=== PATIENT | female | born 1940 | race Asian ===

== ENCOUNTER 2019-01-13 05:40 | Inpatient (IN) | payer OTHER ==
[~2019-01-13] VITALS: Ht 152.4 cm; Wt 59.0 kg
--- NOTE | 2019-01-13 07:07 | NUR ---
REPORT RECEIVED FROM CRYSTAL ARELLANO. I'M RESUMING CARE OF PT AT THIS TIME.
[2019-01-13] MEDS ORDERED: HYDROCHLOROTHIA25 MG PO (07:12)
--- NOTE | 2019-01-13 07:12 | NUR ---
REPORT GIVEN TO SETH ARELLANO.PT IN NAD. OXYGEN DECREASED TO 10 LITERS VIA NRB. PT VOIDED ONCE. APPROX 200 CC OF CLEAR URINE. SAMPLE COLLECTED
[2019-01-13] MEDS ORDERED: METFORMIN HCL1000 MG PO (07:13)
[2019-01-13] MEDS ORDERED: NOR5 PO (07:13)
[2019-01-13] MEDS ORDERED: ACT15 PO (07:13)
[2019-01-13] MEDS ORDERED: ATORVASTATIN CA20 M1 PO (07:14)
[2019-01-13] MEDS ORDERED: JANUVIA100 M1 PO (07:14)
--- NOTE | 2019-01-13 07:22 | NUR ---
PT IN POSITION OF COMFORT NO RESP DISTRESS NOTED. NON-REBREATHER MASK REMOVED, PT PLACED ON NASAL CANNULA AT 2L, PT TOLERATING WELL. RESP EVEN AND UNLABORED. PER DAUGHTER WHO IS TRANSLATING PT FEELS "BETTER" SINCE BEING MEDICATED. NO FURTHER ORDERS AT THIS TIME. PT ON FULL CM WILL MONITOR.
[2019-01-13 07:25] LABS: ALKALINE PHOSPHATASE 49 U/L (46-116); ALT/SGPT 44 U/L (14-59); AST/SGOT 37 U/L (15-37); BILIRUBIN TOTAL 0.53 mg/dL (0.20-1.00); CALCIUM 8.5 mg/dL (8.5-10.1); CARBON DIOXIDE 21.7 mmol/L (21-32); CHLORIDE SERUM 91 mmol/L (98-107); CREATININE SERUM 0.7 mg/dL (0.6-1.0); GLUCOSE SERUM 234 mg/dL (74-106); SODIUM SERUM 125 mmol/L (136-145)
[2019-01-13 07:45] LABS: BASOPHIL % 0.4 % (0-2); RED CELL DISTRIBUTION WIDTH 15.4 % (11.5-14.5)
[2019-01-13 07:46] LABS: PLATELET COUNT 506 x10^3mcL (130-400); TOTAL PROTEIN, SERUM 8.3 g/dL (6.4-8.2)
--- NOTE | 2019-01-13 08:01 | NUR ---
PT WITH URGE TO VOID ASSISTED TO BED RINCON, THIS IS HER 2ND TIME VOIDING POST MEDICATION GIVEN.
--- NOTE | 2019-01-13 09:30 | NUR ---
DR CHRISTOPHER AT BEDSIDE SPEAKING WITH PT AND PTS DAUGHTER
--- NOTE | 2019-01-13 09:37 | NUR ---
REPORT GIVEN TO DAVE RN RESUMING CARE OF PT IN TELE FLOOR
--- NOTE | 2019-01-13 09:59 | NUR ---
RECEIVED PT FROM ER, ACCOMPANIED BY 2 RNs AND DAUGHTER DENA, IN NO ACUTE DISTRESS, VERBAL, ABLE TO MAKE NEEDS KNOWN, CALM AND COOPERATIVE, PERRLA, BRISK, DENTURE TO BILATERAL JAWS, NO REDNESS/DRAINGE, NO FACIAL DROOP/SLURRED SPEECH, REGULAR DIET, RESP EVEN, MILD CONGESTIVE BILTERALLY, 2L/MIN, NC, 98%, LUNGS CTA, NO SOB/COUGH NOTED, TELE# 25, ST, HR-121 AT THIS TIME, DENIED CP/PALPITATION, DENIED N/V/D, DENIED FISH/DIZZINESS, CHEST RISE SYMMETRICALLY, HUE FLAT AND NON-TENDER TO TOUCH, BS ACTIVE X 4, PALP PULSES, CAP REFILL <3S, SKIN C/D/W, IV PATENT AND INFUSING WELL, DRESSING CDI, SEE SKIN ASSESSMENT, CONTINENT, AMBULATORY W/ GENERALIZED WEAKNESS, EQUAL HAND MANNEQUIN MAKER, ALL NEEDS ADDRESSED AT THIS TIME, SAFETY PROTOCOL FOLLOWED, COMFORT MEASURE PROVIDED, CONTINUE TO MONITOR
[2019-01-13 10:20] VITALS: BP 144/84
--- NOTE | 2019-01-13 11:22 | NUR ---
PT RESTING IN BED, IN NO ACUTE DISTRESS, VOID X 1, IV INFUSING WELL, DRESING CDI, SAFETY PROTOCOL FOLLOWED, CONTINUE TO MONITOR
--- NOTE | 2019-01-13 11:37 | NUR ---
PER DAUGHTER DENA, PT HAD PNEUMOCOCCAL VACCINE IN 2011 AND 2016, NO NEED FOR PNEUMOCOCCAL VACCINE AT THIS TIME DURING HOSPITALIZATION, MANAGER EPIC GUNNAR CLINE MADE AWARE, CONTINUE TO MONITOR
--- NOTE | 2019-01-13 12:52 | NUR ---
DR CHRISTOPHER CALLED AND ORDERED VIJI HIDALGO D/T PT AFIB CONDITION AND PLATELET LEVEL, RT-IS, AND PTT LAB, PT AND FAMILY MADE AWARE, ALL NEEDS ADDRESSED AT THIS TIME, SAFETY PROTOCOL FOLLOWED, CONTINUE TO MONITOR
--- NOTE | 2019-01-13 13:21 | NUR ---
I.S. PROVIDED, EDUCATED PT R/T TO USE OF I.S. W/ DEMONSTRATION, DEMONSTRATED UNDERSTANDING, PT MADE AWARE OF US ORDER, VERBALLY UNDERSTANDING, ALL NEEDS ADDRESSED AT THIS TIME, PT RESTING IN BED IN NO ACUTE DISTRESS, RESP EVEN AND NONLABORED, ALL NEEDS ADDRESSED AT THIS TIME, SAFETY PROTOCOL FOLLOWED, CONTINUE TO MONITOR
--- NOTE | 2019-01-13 13:57 | NUR ---
URINE SAMPLE COLLECTED FOR [facility] LAB, MRSA NARE SAMPLE COLLECTED, SENT TO LAB, PT AND FAMILY MADE AWARE
--- NOTE | 2019-01-13 14:36 | NUR ---
HEPARIN DRIP STARTED PER DR CHRISTOPHER ORDER, LOADING DOSE AT 3600 U.I. INITIATE INFUSING DOSE AT 700 U.I/HR PER HOSPITAL PROTOCOL, COSIGNED AND DOUBLE CHECKED W/ CHARGE NURSE MIRTA ARELLANO, CORRECTED CLARIFIED, PT RESTING IN BED IN NO ACUTE DISTRESS, CONTINUE TO MONITOR
--- NOTE | 2019-01-13 14:37 | NUR ---
PTT LAB ORDER AT 2029 TODAY PER NURSING PROTOCOL FOLLOWED UP 6 HR AFTER INITIAL HEPARINE DOSE, CHARGE NURSE OBEY MADE AWARE, PT AND FAMILY AT BEDSIDE MADE AWARE, CONTINUE TO MONITOR
[2019-01-13 14:59] LABS: UA SPECIFIC GRAVITY 1.015 (1.005-1.035); microscopic required? YES; urine erythrocyte TRACE (NEGATIVE)
[2019-01-13 16:12] VITALS: BP 140/90
--- NOTE | 2019-01-13 17:00 | NUR ---
SEEN BY DR ESCAMILLA, NEW ORDER OBTAINED, PT MADE AWARE, AL NEEDS ADDRESSED AT THIS TIME, PT RESTING IN BED IN NO ACUTE DISTRESS, CONTINUE TO MONITOR
--- NOTE | 2019-01-13 17:25 | NUR ---
PT SLEEPING IN BED, IN NO ACUTE DISTRESS, RESP EVEN, NO SOB/COUGH, CHEST RISE SYMMETRICALLY, IV PATENT AND INFUSIGN WELL, DRESSING CDI, FAMILY AT BEDSIDE, ALL NEEDS ADDRESSED AT THIS TIME, SAFETY PROTOCOL FOLLOWED, WILL ENDORE TO ONCOMING RN
--- NOTE | 2019-01-13 19:20 | NUR ---
AM NURSE DAVE SAYS THAT PATIENT NEED INFLUENZA A AND B SWAB,DEBRA SHOWED DAVE RIGHT SWAB, AND TUBE,COLLECTED BY DEBRA.THANKS.
--- NOTE | 2019-01-13 19:44 | NUR ---
SHIFT REASSESSMENT DONE.PATIENT ALERT AND ORIENTED,IV SITE R WRIST,LOOSEN UP DRESSING,TIGHT.WILL APPLY EXTENSION TUBING FOR EASIER HANDLING,NURSE AND PATIENT.O2 AT 2 LITERS.MANDARIN SPEAKING,LITTLE CROATIAN,NEEDS ANTICIPATED.AMBULATE WITH ASSIST.NS 50 CC/ HOUR.TELE 25 AFIB.SKIN INTACT.SCD.HEPARIN WAS DC EARLIER,VOIDING.CALL LIGHT IN REACH.
[2019-01-13 20:40] VITALS: BP 130/71
--- NOTE | 2019-01-13 22:40 | NUR ---
ALL PM MEDS SCHEDULED GIVEN.FAMILY WAS HERE,VERY SUPPORTIVE OF CARE.
--- NOTE | 2019-01-14 02:00 | NUR ---
CHECKED AT INTERVALS FOR NEEDS AND SAFETY.
--- NOTE | 2019-01-14 03:53 | NUR ---
ASSISTED TO RESTROOM,GEN WEAKNESS.CALL LIGHT IN REACH.
[2019-01-14 05:39] VITALS: BP 138/85
[2019-01-14 07:22] VITALS: BP 142/76
--- NOTE | 2019-01-14 07:33 | NUR ---
RECEIVED AWAKE AND ALERT. IN NO RESP. DISTRESS. VS WNL. IVF INFUSING WELL. NO C/O PAIN OR DISCOMFORT AT THIS TIME. CALL LIGHT WITHIN REACH. WILL CONTINUE WITH PLAN OF CARE.
[2019-01-14 08:27] LABS: CARBON DIOXIDE 27.3 mmol/L (21-32); CHLORIDE SERUM 98 mmol/L (98-107); CREATININE SERUM 0.8 mg/dL (0.6-1.0); GLUCOSE SERUM 118 mg/dL (74-106); POTASSIUM SERUM 4.1 mmol/L (3.5-5.1); SODIUM SERUM 134 mmol/L (136-145)
[2019-01-14 09:11] LABS: BASOPHIL % 0.5 % (0-2)
[2019-01-14 10:03] LABS: PLATELET COUNT 432 x10^3mcL (130-400); RED CELL DISTRIBUTION WIDTH 15.2 % (11.5-14.5)
[2019-01-14 11:53] VITALS: BP 141/77
--- NOTE | 2019-01-14 14:50 | NUR ---
RESTING IN NO DISTRESS, NO CHANGES IN VS. NO C/O PAIN OR DISCOMFORT.
[2019-01-14 15:50] VITALS: BP 141/90
--- NOTE | 2019-01-14 18:32 | NUR ---
PT REMAINS IN NO DISTRESS. AWAKE AND ALERT. NO CHANGES IN VS. NO C/O PAIN OR DISCOMFORT. IVF INFUSING WELL AND SITE CLEAR. FAMILY AT BEDSIDE. WILL BE ENDORSED TO INCOMING SHIFT.
[2019-01-14 19:16] VITALS: BP 91/52
--- NOTE | 2019-01-14 20:00 | NUR ---
RECEIVED PT IN BED, RESTING QUIETLY. ALERT AND ORIENTED. DENIES HEADACHE/DIZZINESS. RESP. EVEN AND UNLABORED. ON ROOM AIR, NO ACUTE DISTRESS NOTED. AFIB ON THE MONITOR, DENIES CP OR ANY DISCOMFORT AT THIS TIME.AFEBRILE AND VITAL SIGNS STABLE. IVF, NS AT 50ML/HR, INTACT AND INFUSING VIA LT HAND, SITE CLEAR. VOIDING FREELY. ASSISTED WITH HS CARE. CALL LIGHT WITHIN REACH. WILL CONTINUE TO MONITOR.
[2019-01-14 22:13] VITALS: Ht 152.4 cm; Wt 59.0 kg
--- NOTE | 2019-01-15 00:36 | NUR ---
COMPLAINED OF DIFF. SLEEPING, REQUESTING SLEEPING MED, ORDER RECEIVED TO GIVE AMBIEN. MEDICATED ORDERED. WILL CONTINUE TO MONITOR.
--- NOTE | 2019-01-15 04:33 | NUR ---
EYES CLOSED, APPEARS ASLEEP, EASILY AROUSABLE. NO ACUTE DISTRESS NOTED. WILL CONTINUE TO MONITOR.
[2019-01-15 05:41] VITALS: BP 139/75
--- NOTE | 2019-01-15 05:45 | NUR ---
SLEPT WELL. NO COMPLAINTS NOTED AT THIS TIME. AFEBRILE AND VITAL SIGNS STABLE. RESP. EVEN AND UNLABORED. NO ACUTE DISTRESS. IVF INTACT AND INFUSING WELL, SITE CLEAR. KEPT COMFORTABLE. VOIDS FREELY. WILL CONTINUE TO MONITOR.
[2019-01-15 06:27] LABS: BASOPHIL % 0.6 % (0-2)
[2019-01-15 06:36] LABS: PLATELET COUNT 490 x10^3mcL (130-400)
[2019-01-15 07:19] VITALS: BP 140/81
--- NOTE | 2019-01-15 07:43 | NUR ---
RECEIVED AWAKE, ALERT AND ORIENTED. IN NO RESP. DISTRESS. VS WNL. IVF INFUSING WELL AND SITE CLEAR. NO C/O PAIN OR DISCOMFORT. CALL LIGHT WITHIN REACH. WILL CONTINUE WITH PLAN OF CARE.
[2019-01-15 08:22] LABS: CALCIUM 7.9 mg/dL (8.5-10.1); CARBON DIOXIDE 28.7 mmol/L (21-32); CHLORIDE SERUM 101 mmol/L (98-107); CREATININE SERUM 0.7 mg/dL (0.6-1.0); GLUCOSE SERUM 122 mg/dL (74-106); POTASSIUM SERUM 4.1 mmol/L (3.5-5.1); SODIUM SERUM 137 mmol/L (136-145)
[2019-01-15 11:23] VITALS: BP 146/79
--- NOTE | 2019-01-15 13:03 | NUR ---
RESTINH IN NO ACUTE DISTRESS. DENIES PAIN OR DISCOMFORT. IVF INFUSING WELL AND SITE CLEAR. CALL LIGHT WITHIN REACH.
[2019-01-15 18:01] VITALS: BP 141/89
--- NOTE | 2019-01-15 18:48 | NUR ---
REMAINS IN NO DISTRESS, AWAKE AND ALERT. FAMILY AT BEDSIDE. NO C/O PAIN OR DISCOMFORT. IVF INFUSING WELL AND SITE CLEAR. CALL LIGHT WITHIN REACH.WILL BE ENDORSED TO INCOMING SHIFT.
--- NOTE | 2019-01-15 19:15 | NUR ---
CARE ASSUMED FROM OUTGOING RN. PT RESTING COMFORTABLY IN BED. NO ACUTE DISTRESS NOTED. EVEN AND UNLABORED RESPIRATIONS ON 1LNC. ON TELE# 25 READING AFIB 107BPM. IV PATENT AND INTACT RUNNING FLUIDS PER EMAR. NO C/O PAIN OR PALPITATIONS AT THIS TIME. BED IN LOWEST POSITION. SIDE RAILS UPX2. CALL LIGHT WITHIN REACH. WILL CONTINUE TO MONITOR.
[2019-01-15 19:24] VITALS: BP 149/87
--- NOTE | 2019-01-15 23:44 | NUR ---
ASSISTED PT TO THE BATHROOM, PT ABLE TO AMBULATE WITH SLOW STEADY GAIT. ABLE TO URINATE WITHOUT ANY DIFFICULTIES. RESTING COMFORTABLY IN BED. EVEN AND UNLABORED RESPIRATIONS ON RA AT THIS TIME. C/O SLIGHT PALPITATION AFTER AMBULATING, TOLERATED WELL AFTER RESTING IN BED. ON TELE# 25 READING AFIB 112 BPM HIGH 126 BPM. IV PATENT AND INTACT RUNNING FLUIDS PER EMAR. BED IN LOWEST POSITION. SIDE RAILS UPX2. CALL LIGHT WITHIN REACH. WILL CONTINUE TO MONITOR.
[2019-01-16] VITALS (7 sets, daily range): BP systolic 147–169; BP diastolic 86–107
--- NOTE | 2019-01-16 05:29 | NUR ---
PT C/O PALPITATIONS. ON TELE READING AFIB AT 130-140BPM. IVF STOPPED PER PT REQUEST. ENCOURAGED PT TO RELAX AND REPOSITIONED PT IN BED. WILL CONTINUE TO MONITOR.
--- NOTE | 2019-01-16 06:11 | NUR ---
PT RESTING COMFORTABLY IN BED. STATES NO C/O PALPITATION OR CHEST DISCOMFORT AT THIS TIME. ON TELE #25 READING AFIB AT 110-120 BPM AT THIS TIME. IVF STOPPED AT THIS TIME PER PT REQUEST, WILL MAKE MD AWARE. PT SLEPT IN INTERVALS THROUGHOUT THE SHIFT. ALL NEEDS TENDED TO AND MET. ALL SCHEDULED MEDICATIONS GIVEN. EVEN AND UNLABORED RESPIRATIONS ON RA AT THSI TIME. BED IN LOWEST POSITION. SIDE RAILS UPX2. CALL LIGHT WITHIN REACH. WILL ENDORSE TO ONCOMING SHIFT.
--- NOTE | 2019-01-16 06:31 | NUR ---
MD AWARE OF PT HAVING AFIB AT 120-140 BPM, AM METOPROLOL TO BE GIVEN NOW. WILL CONTINUE TO MONITOR AND ENDORSE TO ONCOMING SHIFT.
--- NOTE | 2019-01-16 07:32 | NUR ---
PT SITTING UP IN BED A/A. BREATHING EQUAL/UNLABORED ON RA. NO ACUTE PAIN. PT C/O HEART RACING. PT HR [address] AWARE. NO IVF RUNNING, PT STATES SHE DOES NOT WANT IT. NO REDNESS/ SWELLING TO IV SITE. BED IN LOW POSITION, CALL LIGHT IN REACH, SAFETY PRECAUTIONS IN PLACE. WILL CONTINUE TO MONITOR
--- NOTE | 2019-01-16 11:42 | NUR ---
PT SITTING UP IN BED, A/A. BREATHING EQUAL/UNLABORED ON 1 L/NC. NO ACUTE PAIN/DISTRESS. NO REDNESS/SWELLING TO IV SITE. BED IN LOW POSITION,CALL LIGHT IN REACH, SAFETY PRECAUTIONS IN PLACE. WILL CONTINUE TO MONITOR
--- NOTE | 2019-01-16 16:14 | NUR ---
PT LYING IN BED, EYES CLOSED, AROUSABLE TO VOICE. BREATHING EQUAL/UNLABORED ON 1L/NC. NO ACUTE PAIN/ DISTRESS. NO REDNESS/SWELLING TO IV SITE. BED IN LOW POSITION, CALL LIGHT IN REACH, SAFETY PRECAUTIONS IN PLACE. WILL CONTINUE TO MONITOR
--- NOTE | 2019-01-16 17:20 | NUR ---
BP 169/107. PT AYSYMPTOMATIC. NOTIFIED PL SQL PROGRAMMER SAURABH. PER SAURABH, WILL ADD PRN MEDICATION. WILL CONTINUE TO MONITOR
--- NOTE | 2019-01-16 18:52 | NUR ---
PT SITTING UP IN BED A/A. BREATHING EQUAL/UNLABORED ON 1 L/ NC. NO ACUTE PAIN. PAIN C/O MILD NAUSEA. PT EATING CRACKERS TO SETTLE STOMACH. NO REDNESS/ SWELLING TO IV SITE. BED IN LOW POSITION, CALL LIGHT IN REACH, SAFETY PRECAUTIONS IN PLACE. FAMILY AT BED SIDE. WILL ENDORSE TO ON COMING NURSE
--- NOTE | 2019-01-16 19:05 | NUR ---
CARE ASSUMED FROM OUTGOING RN. PT RESTING IN BED. FAMILY AT BEDSIDE. NO ACUTE DISTRESS NOTED. EVEN AND UNLABORED RESPIRATIONS ON 1LNC. ON TELE# 25 READING AFIB AT 119 BPM. IVL INTACT. C/O NAUSEA DUE TO MEDICATION, WILL PAGE FOR NAUSEA MEDICATIONS. BED IN LOWEST POSITION. SIDE RAILS UPX2. CALL LIGHT WITHIN REACH. WILL CONTINUE TO MONITOR.
--- NOTE | 2019-01-16 22:55 | NUR ---
PT C/O NAUSEA AND INSOMNIA MEDICATED PER EMAR. ON TELE# 25 READING AFIB AT 109BPM. EVEN AND UNLABORED RESPIRATIONS ON 1LNC. WILL CONTINUE TO MONITOR.
--- NOTE | 2019-01-17 00:37 | NUR ---
PT RESTING COMFORTABLY IN BED WITH EYES CLOSED. NO ACUTE DISTRESS NOTED. EVEN AND UNLABORED RESPIRATIONS ON 1LNC. ON TELE# 25 READING AFIB AT 95 BPM. IVL INTACT. WILL CONTINUE TO MONITOR.
[2019-01-17 05:14] VITALS: BP 156/92
--- NOTE | 2019-01-17 06:11 | NUR ---
PT SLEPT IN INTERVALS THROUGHOUT THE SHIFT. ALL NEEDS TENDED TO AND MET. ALL SCHEDULED MEDICATIONS. C/O NAUSEA AND INSOMNIA MEDICATED PER EMAR. ON TELE# 25 READING AFIB AT 80-110 BPM THROUGHOUT THE SHIFT. IVL INTACT. AM BP: 156/92. EVEN AND UNLABORED RESPIRATIONS ON 1LNC. BED IN LOWEST POSITION. SIDE RAILS UXP2. CALL LIGHT WITHIN REACH. WILL ENDORSE TO ONCOMING SHIFT.
[2019-01-17 06:33] LABS: CALCIUM 7.9 mg/dL (8.5-10.1); CARBON DIOXIDE 22.7 mmol/L (21-32); CHLORIDE SERUM 96 mmol/L (98-107); CREATININE SERUM 0.9 mg/dL (0.6-1.0); GLUCOSE SERUM 153 mg/dL (74-106); POTASSIUM SERUM 3.7 mmol/L (3.5-5.1); SODIUM SERUM 130 mmol/L (136-145)
[2019-01-17 07:01] LABS: BASOPHIL % 0.6 % (0-2)
[2019-01-17 07:15] LABS: PLATELET COUNT 488 x10^3mcL (130-400); RED CELL DISTRIBUTION WIDTH 15.3 % (11.5-14.5)
[2019-01-17 08:30] VITALS: BP 143/93
[2019-01-17 12:36] VITALS: BP 152/98
[2019-01-17 17:17] VITALS: BP 155/93
--- NOTE | 2019-01-17 18:30 | NUR ---
AAO TIMES 4. TELE # 25 A FIB 120'S. NO SOB. VS'S STABLE. COOPERATIVE. IV SITE CDI. WATCHING TV. NO C/O DISCOMFORT.
--- NOTE | 2019-01-17 19:22 | NUR ---
SHIFT REASSESSMENT DONE.PATIENT ALERT AND ORIENTED.MAKE NEEDS KNOWN TO STAFF.MANDARIN AND CANADIAN.PLEASANT.O2 AT 1 LITER.CXR CARDIOMEGALY,PULMONARY EDEMA.HEPLOCK Marlyn HAND.TELE 25 AFIB.SKIN INTACT.VOIDING.BRP.CALL LIGHT IN REACH.
[2019-01-17 21:00] VITALS: BP 150/70
--- NOTE | 2019-01-17 21:00 | NUR ---
PATIENT IV SITE SWOLLEN,WILL PUT A NEW IV.ALSO AMBIEN PO GIVEN.
--- NOTE | 2019-01-17 21:00 | NUR ---
NEW IV SITE R WRIST 20 GUAGE,STARTED BY NACHO WILLIAMSON.R
--- NOTE | 2019-01-18 03:21 | NUR ---
CHECKED AT INTERVALS FOR NEEDS AND SAFETY.NEW BATTERY APPLIED,TELE.WAS SOUND ASLEEP.NO RESP DISTRESS.
--- NOTE | 2019-01-18 06:01 | NUR ---
NO DISTRESS THIS SHIFT.WILL ENDORSE TO NEXT SHIFT.CALL LIGHT IN REACH.
[2019-01-18 06:09] VITALS: BP 147/87
--- NOTE | 2019-01-18 07:45 | NUR ---
RECEIVED PT IN BED A/A/OX4 DENIES FISH. RESP EVEN AND UNLABORED WITH CLEAR BS BILAT. DENIES ANY SOB/CP/PRESSURE. AT THIS TIME. CONTROLLED AFIB ON TELE HR 90S. PT REPORTS SENSATION OF PALPITATION OR FAST HR AT TIMES. DENIES ANY DIZZINESS. NOTED WITH TRACE EDEMA TO BLE AND LT HAND AT OLD IV SITE AREA. ABD SOFT, NONTENDER WITH ACTIVE BS X4. DENIES ANY N/V AT THIS TIME. VOIDING FREELY AND AMBULATORY. CALL LIGHT IN REACH NEEDS ATTENDED TO.
[2019-01-18 08:02] VITALS: BP 160/77
[2019-01-18 09:31] LABS: BASOPHIL % 0.1 % (0-2)
[2019-01-18 09:33] LABS: PLATELET COUNT 486 x10^3mcL (130-400); RED CELL DISTRIBUTION WIDTH 15.5 % (11.5-14.5)
[2019-01-18 09:51] LABS: CARBON DIOXIDE 25.2 mmol/L (21-32); CHLORIDE SERUM 93 mmol/L (98-107); CREATININE SERUM 0.9 mg/dL (0.6-1.0); GLUCOSE SERUM 245 mg/dL (74-106); POTASSIUM SERUM 4.7 mmol/L (3.5-5.1); SODIUM SERUM 125 mmol/L (136-145)
[2019-01-18 11:47] VITALS: BP 152/93
--- NOTE | 2019-01-18 13:00 | NUR ---
SPOKE WITH PT'S GRANDAUGHER MADE AWARE THAT PER DIRECTOR OF EVENTS PT WILL REMAIN HOSPITALIZED UNTIL CARDIAC CLEARED AND ONCE SODIUM LEVEL STABALIZES. PT AND FAMILY VERBALIZED UNDERSTANDING.
--- NOTE | 2019-01-18 16:25 | NUR ---
SPOKE WITH DR. ESCAMILLA REGARDING ELEAVTION IN B/O MD STATED HE WOULD START PT ON ANOTHER B/P MED.
[2019-01-18 16:50] VITALS: BP 160/107
--- NOTE | 2019-01-18 18:06 | NUR ---
PT RESTING COMFORTABLY AT THIS TIME. DENIES ANY DISCOMFORT. IVF NS AT 50ML/HR. CALL LIGHT IN REACH NEEDS ATTENDED TO.
--- NOTE | 2019-01-18 19:30 | NUR ---
PT IS A/O x4. TELE #25, A FIB. DENIES ANY CHEST PAIN OR PRESSURE. PULSES ARE PRESENT. TRACE EDEMA NOTED ON BLE. LUNGS CLEAR IN ALL FEILDS. ON RA, DENIES ANY SOB. EQUAL CHEST RISE AND FALL. NO SIGN OF RESP DISTRESS. BOWEL SOUNDS PRESENT x4. DENIES ANY ABD PAIN. C/O DIRRHEA DURING THE DAY. AMBULATES FREELY. SKIN IS WARM AND INTACT. DENIES ANY PAIN AT THIS TIME. IV ON R WRIST INTACT AND PATENT. NO SIGN OF INFILTRATION OR IRRITATION. BED IS AT LOWEST SETTING. FAMILY IS AT BEDSIDE. CALL LIGHT WITHIN REACH. WILL CONTINUE TO MONTIOR.
[2019-01-18 20:27] VITALS: BP 150/82
--- NOTE | 2019-01-19 01:43 | NUR ---
PT IS RESTING IN BED WITH BOTH EYES CLOSED. BREATHING EVEN AND UNLABORED. NO SIGN OF DISTRESS NOTED. BED IS AT LOWEST SETTING. CALL LIGHT WITHIN REACH. WILL CONTINUE TO MONTIOR.
[2019-01-19 05:23] VITALS: BP 153/85
[2019-01-19 06:30] LABS: BASOPHIL % 0.8 % (0-2); PLATELET COUNT 494 x10^3mcL (130-400); RED CELL DISTRIBUTION WIDTH 15.3 % (11.5-14.5)
--- NOTE | 2019-01-19 06:40 | NUR ---
PT IS RESTING IN BED. DENIES ANY PAIN OR DISTRESS. NO ACUTE EVENT OCCURED AT NIGHT. IV INTACT AND PATENT. BED IS AT LOWEST SETTING. CALL LIGHT WITHIN REACH. WILL ENDORSE TO AM NURSE.
[2019-01-19 06:42] LABS: CALCIUM 7.9 mg/dL (8.5-10.1); CARBON DIOXIDE 22.5 mmol/L (21-32); CHLORIDE SERUM 93 mmol/L (98-107); CREATININE SERUM 0.6 mg/dL (0.6-1.0); GLUCOSE SERUM 151 mg/dL (74-106); POTASSIUM SERUM 3.6 mmol/L (3.5-5.1); SODIUM SERUM 127 mmol/L (136-145)
--- NOTE | 2019-01-19 07:30 | NUR ---
PT ENDORSE TO ME THIS MORNING, LAYING IN BED RESTING , AA/O X4 MANDARIN SPK ALSO JAPANESE SPK. TELE 25 AFIB NOTED/ HR 89 NOTED, DENIES CP OR PRESSURE. CURRENTLY ON ELIQUIS. BREATHING EVEN AND UNLABORED ON RA, NO ACUTE RESP DISTRESS OR SOB NOTED. LAST MB 03/20, LOOSE PER PT. VOIDS FREELY. AMB. KNOWS TO CALL FOR ASSIST. IV TO THE RIGHT WRIST INTACT AND PATENT/ INFUSING AT 50 ML/HR, NO REDNESS ORS WELLING NOTED. CALL LIGHT IN REACH. BED IN LOW POSITION. WILL CONTINUE TO MONITOR.
[2019-01-19 07:43] VITALS: BP 158/89
[2019-01-19 12:18] VITALS: BP 155/83
--- NOTE | 2019-01-19 13:12 | NUR ---
1. Recommend [facility] diet. Paged TEENAGE PROGRAM DIRECTOR Greg, waiting for call back.
--- NOTE | 2019-01-19 13:12 | NUR ---
Initial Nutrition Assessment: 235T/A MICKEY GOVEA MR Dx: New onset afib, CHF PMHx: HTN, DM PSHx: none Labs: NA 127L, BG 151H, HGB 10.4L Meds: Ambien, D 50%, Glucophage, Lopressor, Rocephin, NS, zofran Diet: cardiac PO intake since admission: (01/18) all meals 85%, (01/17) breakfast, lunch 40%, dinner 50% Ht: 152.4 cm (60") Wt: 59 kg (130#) BMI: 25.4 kg/m2 Bed scale: 59.1 kg IBW: 100# (45 kg) %IBW: 130 UBW: 130# Age: 78/F Food Allergies: NKFA Skin: intact Bahman: 21 Edema: trace BLE GI: Last BM: 01/18 Per H&P, Pt is a 78-year old female with a 1-day history of palpitations. According to patient around 3am today she was having some palpitations with some SOB. When patient arrived in the ER patient was noted to be in Afib with RVR. RD Note (01/19): Patient was alert and oriented and said that she ate all of her breakfast this morning. Patient denies any N/V/D/C at this time. Problem with: N/V/D/C: none at this time Problems with: Chewing: Swallowing: none Current appetite: good Recent wt change: none %wt change: n/a Vitamin/Supplement use: yes, does not remember names Special diet at home: Regular Physical activity: sedentary Nutrition education given: Patient could only understand basic Amharic therefore education will be given when a family member is at bedside. Food-drug interactions: none Education given: n/a Estimated Nutritional Needs Based on current body weight (59 kg) Energy: 9875-4761 kcal/day (25-30 kcal/kg for geriatric maintenance) Protein: 71-83 g/day (1.2-1.4 g/kg for geriatric maintenance) Fluid: 4945-0076 mL/day (1 mL/kcal) Nutrition Diagnosis: 1. Alerted nutrition related lab values related to endocrine dysfunction/ DM as evidenced by BG 151H. Intervention 1. Recommend [facility] diet. Paged ARI Garza, waiting for call back. Monitor/Evaluate Goal: PO intake at least 75% of estimated needs Monitor: PO intake, Labs, GI function F/U in 7 days as low risk 01/26
--- NOTE | 2019-01-19 14:45 | NUR ---
PT TOLERATED 100 % OF LUNCH. FAMILY AT BEDSIDE. PT DENIES ANY DISCOMFORT OR PAIN. WILL CONTINUE TO MONITOR.
[2019-01-19 16:01] VITALS: BP 114/84
--- NOTE | 2019-01-19 18:45 | NUR ---
PT IS SITTING UP IN BED/ FAMILY BY HER SIDE. TOLERATED 100% OF DINNER/ DENIES ANY CP OR PRESSUE/ DISCOMFORT. REMAINS ON NS AT 50ML/HR TO THE R WRIST/ TOLERATING WELL. WILL ENDORSE TO INCOMING RN.
[2019-01-19 19:47] VITALS: BP 165/92
--- NOTE | 2019-01-19 20:00 | NUR ---
RECEIVED PT IN BED, RESTING QUIETLY. RESP. EVEN AND UNLABORED. LUNG SOUNDS CLEAR BILAT. ON ROOM AIR, NO ACUTE DISTRESS NOTED. AFEBRILE AND VITAL SIGNS STABLE. AFIB ON THE MONITOR, DENIES CP OR ANY DISCOMFORT AT THIS TIME. IVF, NS AT 50ML/HR, INTACT AND INFUSING VIA RT WRIST. AMBULATES TO THE BATH ROOM, VOIDING FREELY. ASSISTED WITH HS CARE. CALL LIGHT WITHIN REACH. WILL CONTINUE TO MONITOR.
--- NOTE | 2019-01-19 21:53 | NUR ---
REQUESTED SLEEPING MED, MEDICATED WITH AMBIEN ORDERED. CALL LIGHT WITHIN REACH. WILL CONTINUE TO MONITOR.
--- NOTE | 2019-01-20 00:08 | NUR ---
RESTING QUIETLY WITH EYES CLOSED, APPEARS ASLEEP, EASILY AROUSABLE. RESP. EVEN AND UNLABORED. NO ACUTE DISTRESS NOTED. CALL LIGHT WITHIN REACH. WILL CONTINUE TO MONITOR.
[2019-01-20 05:35] VITALS: BP 157/86
--- NOTE | 2019-01-20 06:17 | NUR ---
AFEBRILE AND VITAL SIGNS STABLE. NO SIGNIFICANT CHANGE NOTED IN PT,S CONDITION. RESP. EVEN AND UNLABORED. NO ACUTE DISTRESS NOTED. IVF INTACT AND INFUSING WELL, SITE CLEAR. DUE MEDS GIVEN ORDERED, FCO. WELL. KEPT COMFORTABLE. WILL CONTINUE TO MONITOR.
[2019-01-20 06:31] LABS: CALCIUM 7.9 mg/dL (8.5-10.1); CARBON DIOXIDE 25.6 mmol/L (21-32); CHLORIDE SERUM 100 mmol/L (98-107); CREATININE SERUM 0.8 mg/dL (0.6-1.0); GLUCOSE SERUM 152 mg/dL (74-106); POTASSIUM SERUM 3.5 mmol/L (3.5-5.1); SODIUM SERUM 134 mmol/L (136-145)
[2019-01-20 06:52] LABS: BASOPHIL % 0.6 % (0-2)
--- NOTE | 2019-01-20 07:05 | NUR ---
SEEN IN BED AAOX4. BREATHING E/U ON ROOM AIR. DENIES CHEST PAIN OR CHEST PRESSURE. ON TELE#25 AFIB. LUNG SOUND CTA. ON CCHO DIET. BRP. IVF NS TO RT WRIST INFUSING WELL AT 50ML/HR. CALL LIGHT PLACED WITHIN EASY REACH. SIDERAILS UP X2.
[2019-01-20 07:17] VITALS: BP 164/92
[2019-01-20 07:23] LABS: PLATELET COUNT 480 x10^3mcL (130-400); RED CELL DISTRIBUTION WIDTH 15.7 % (11.5-14.5)
--- NOTE | 2019-01-20 10:30 | NUR ---
IVF NS DISCONTINUED PER BERNARDINO ORDER.
[2019-01-20] MEDS ORDERED: ELIQUIS5 MG PO (11:11)
[2019-01-20] MEDS ORDERED: LOP50 PO (11:11)
--- NOTE | 2019-01-20 11:30 | NUR ---
NOTED NEW ORDER TO DISCHARGE PATIENT HOME. PATIENT MADE AWARE.
[2019-01-20] MEDS ORDERED: SOTALOL80 MG PO (11:40)
[2019-01-20] MEDS ORDERED: NIFEDIPINE30 MG PO (11:40)
[2019-01-20 11:42] VITALS: BP 153/90
[2019-01-20 12:04] VITALS: BP 153/90
--- NOTE | 2019-01-20 14:00 | NUR ---
BROUGHT VIA WHEELCHAIR ASSISTED BY NESS MILLER, ACCOMPANIED BY PATIENT'S DAUGHTER TO LOBBY. CONDITION STABLE UPON DISCHARGE HOME.
--- NOTE | 2019-01-20 14:07 | NUR ---
DISCHARGE INSTRUCTION GIVEN TO PATIENT AND PATIENT'S DAUGHTER. S/L TO LEFT WRIST REMOVED WITH CATHETER INTACT, NO ERYTHEMA OR SWELLING, PRESSURE DRSG APPLIED. TELE# 25 REMOVED, CLEANED AND RETURNED TO MO. DENIES CHEST PAIN. CONDITION STABLE.
== END 2019-01-20 14:10 | disposition home or self-care (01) | DRG 292 ==
LOC: ED 05:40 → DU 08:27
PROVIDERS: General Practice; Internal Medicine; ADMIT Internal Medicine
DX: I11.0 Hypertensive heart disease with heart failure (principal); I48.20 Chronic atrial fibrillation, unspecified; E87.1 Hypo-osmolality and hyponatremia; E44.0 Moderate protein-calorie malnutrition; N39.0 Urinary tract infection, site not specified; I50.43 Acute on chronic combined systolic (congestive) and diastolic (congestive) heart failure; J06.9 Acute upper respiratory infection, unspecified; J40 Bronchitis, not specified as acute or chronic; E11.9 Type 2 diabetes mellitus without complications; E78.00 Pure hypercholesterolemia, unspecified; E78.5 Hyperlipidemia, unspecified; I08.1 Rheumatic disorders of both mitral and tricuspid valves; D63.8 Anemia in other chronic diseases classified elsewhere; Z68.26 Body mass index [BMI] 26.0-26.9, adult; Z79.01 Long term (current) use of anticoagulants; Z79.899 Other long term (current) drug therapy
CPT/HCPCS: 82962; 83880; 87804; 97116-GP; G0378; J0360; J0456; J0696; J1644; J1940; J2405; J3490; J7030; Q0092